=== PATIENT | female | born 2000 | race Caucasian/White ===

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

== ENCOUNTER 2018-06-19 03:06 | Emergency (ER) | payer OTHER ==
[2018-06-19 03:10] VITALS: BP 119/83
--- NOTE | 2018-06-19 03:25 | ED ---
Substance Abuse/Use - HPI Summary HPI Summary: This patient is a 17 year old female brought in by ambulance to [facility] with a chief complaint of alcohol intoxication. Patient states she drank alcohol and went home to her dorm after the republican. Patients roommates found her asleep and called EMS, thinking that she was unconscious. Patient is alert and oriented x3 and does not seem intoxicated. Patient can walk with a steady gait. - History Of Current Complaint Chief Complaint: EDSubstanceAbuse Stated Complaint: "2209" PER POLICE Time Seen by Provider: 06/19/18 03:14 Hx Obtained From: Patient Ingestion History: Type/Name Of Drug Overdose Characteristics: Oral Severity Currently: None Aggravating Factor(s): Nothing Alleviating Factor(s): Nothing Associated Signs And Symptoms: Negative - AMS - Allergies/Home Medications Allergies/Adverse Reactions: Allergies Allergy/AdvReac Type Severity Reaction Status Date / Time No Known Allergies Allergy Verified 11/03/17 21:56 PMH/Surg Hx/FS Hx/Imm Hx Previously Healthy: Yes Endocrine/Hematology History: Denies: Hx Diabetes Cardiovascular History: Denies: Hx Hypertension EENT History: Denies: Hx Deafness - Surgical History Surgery Procedure, Year, and Place: None Infectious Disease History: No Infectious Disease History: Denies: Traveled Outside the [place] in Last 30 Days - Family History Known Family History: Negative: Blood Disorder - Social History Occupation: Student Lives: Dormitory/Roommates Alcohol Use: Weekly Hx Substance Use: No Substance Use Type: Reports: None Hx Tobacco Use: No Smoking Status (MU): Never Smoked Tobacco Review of Systems Negative: Fever Neurological: Other - normal gait Negative: Depressed All Other Systems Reviewed And Are Negative: Yes Physical Exam - Summary Physical Exam Summary: Appearance: Well-appearing, Well-nourished, lying in bed comfortably Skin: Warm, dry, no obvious rash Eyes: sclera anicteric, no conjunctival pallor ENT: mucous membranes moist, pharynx appears normal Neck: Supple, nontender Respiratory: Clear to auscultation, no signs of respiratory distress Cardiovascular: Normal S1, S2. No murmurs. Normal distal pulses in tibial and radial bilaterally. Abdomen: Soft, nontender, normal active bowel sounds present Musculoskeletal: Normal, Strength/ROM Intact Neurological: A&Ox3, awake and alert, mentation is normal, speech is fluent and appropriate. Gait is perfect. Psychiatric: affect is normal, does not appear anxious or depressed Triage Information Reviewed: Yes Vital Signs On Initial Exam: Initial Vitals Temp Pulse Resp BP Pulse Ox 98.7 F 92 16 119/83 100 06/19/18 03:08 06/19/18 03:08 06/19/18 03:08 06/19/18 03:08 06/19/18 03:08 Vital Signs Reviewed: Yes Diagnostics - Vital Signs Vital Signs Temp Pulse Resp BP Pulse Ox 06/19/18 03:08 98.7 F 92 16 119/83 100 - Laboratory Lab Statement: Any lab studies that have been ordered have been reviewed, and results considered in the medical decision making process. Course/Dx - Course Course Of Treatment: This patient is a 17 year old female brought in by ambulance to [facility] with a chief complaint of alcohol intoxication. Patient states she drank alcohol and went home to her dorm after the republican. Patients roommates found her asleep and called EMS, thinking that she was unconscious. Patient is alert and oriented x3 and does not seem intoxicated. Patient can walk with a steady gait. Patient will be discharged with a dx of alcohol intoxication. The patient is agreeable with this plan. - Diagnoses Provider Diagnoses: Alcohol intoxication Discharge - Sign-Out/Discharge Documenting (check all that apply): Patient Departure Patient Received Moderate/Deep Sedation with Procedure: No - Discharge Plan Condition: Good Disposition: HOME Patient Education Materials: Alcohol Intoxication (ED) [facility]errals: [facility] [Z.BUSINESS, APPLICATION, OTHER] - If Needed - Billing Disposition and Condition Condition: GOOD Disposition: Home - Attestation Statements Document Initiated by Afua: Yes Documenting Scribe: Jet Rust Provider For Whom Afua is Documenting (Include Credential): Edd Bowens MD Scribe Attestation: Jet Burgos scribed for Edd Bowens MD on 06/19/18 at 0629. Scribe Documentation Reviewed: Yes Provider Attestation: The documentation as recorded by the Jet cheek accurately reflects the service I personally performed and the decisions made by me, Edd Bowens MD Status of Scribe Document: Viewed
== END 2018-06-19 03:35 | disposition home or self-care (01) ==
LOC: ED 03:06
DX: F10.129 Alcohol abuse with intoxication, unspecified (principal)
CPT/HCPCS: 99282

== ENCOUNTER 2019-03-30 22:07 | Emergency (ER) | payer BC, OTHER ==
[2019-03-30] MEDS ORDERED: Ibuprofen TAB* 600 MG PO ONE (23:05)
--- NOTE | 2019-03-30 23:05 | ED ---
Lower Extremity - HPI Summary HPI Summary: Patient complains of left ankle pain and swelling status post fall from skateboarding today. Denies any other pain, injury or symptoms. - History of Current Complaint Chief Complaint: EDExtremityLower Stated Complaint: ANKLE PAIN PER PT Time Seen by Provider: 03/30/19 22:53 Hx Obtained From: Patient Mechanism Of Injury: Fall From A Standing Position Onset of Pain: Immediate Onset/Duration: Hours Severity Initially: Moderate Severity Currently: Mild Pain Intensity: 0 Pain Scale Used: 0-10 Numeric Timing: Constant Location: Is Discrete @ Character Of Pain: Aching Associated Signs And Symptoms: Positive: Swelling Aggravating Factor(s): Standing, Ambulation Alleviating Factor(s): Rest Able to Bear Weight: No - Allergies/Home Medications Allergies/Adverse Reactions: Allergies Allergy/AdvReac Type Severity Reaction Status Date / Time No Known Allergies Allergy Verified 03/30/19 23:33 Home Medications: Home Medications NK [No Home Medications Reported] 03/30/19 [History Confirmed 03/30/19] PMH/Surg Hx/FS Hx/Imm Hx Endocrine/Hematology History: Denies: Hx Diabetes Cardiovascular History: Denies: Hx Hypertension History: Denies: Hx Dialysis Sensory History: Denies: Hx Deafness Opthamlomology History: Denies: Hx Cataracts EENT History: Denies: Hx Deafness Neurological History: Denies: Hx Dementia - Surgical History Surgery Procedure, Year, and Place: None Infectious Disease History: No Infectious Disease History: Denies: Traveled Outside the [place] in Last 30 Days - Family History Known Family History: Positive: Non-Contributory Negative: Blood Disorder - Social History Alcohol Use: Weekly Hx Substance Use: No Substance Use Type: Reports: None Hx Tobacco Use: No Smoking Status (MU): Never Smoked Tobacco Review of Systems Constitutional: Negative Eyes: Negative ENT: Negative Cardiovascular: Negative Respiratory: Negative Gastrointestinal: Negative Genitourinary: Negative Musculoskeletal: Other Skin: Negative Neurological/Mental Status: Negative Psychological: Normal All Other Systems Reviewed And Are Negative: Yes Physical Exam - Summary Physical Exam Summary: Significant swelling to the lateral malleolus of left ankle. No pain with palpation of foot, calf, knee. PMS intact distally. Triage Information Reviewed: Yes Vital Signs On Initial Exam: Initial Vitals Temp Pulse Resp BP Pulse Ox 98.5 F 94 18 123/65 99 03/30/19 22:09 03/30/19 22:09 03/30/19 22:09 03/30/19 22:09 03/30/19 22:09 Vital Signs Reviewed: Yes Appearance: Positive: Well-Appearing Skin: Positive: Warm Head/Face: Positive: Normal Head/Face Inspection Eyes: Positive: Normal Neck: Positive: Supple Respiratory/Lung Sounds: Positive: Clear to Auscultation Cardiovascular: Positive: Normal Abdomen Description: Positive: Nontender Musculoskeletal: Positive: Normal Neurological: Positive: Normal Psychiatric: Positive: Normal AVPU Assessment: Alert - [place] Coma Scale Best Eye Response: 4 - Spontaneous Best Motor Response: 6 - Obeys Commands Best Verbal Response: 5 - Oriented Coma Scale Total: 15 Procedures - Sedation Patient Received Moderate/Deep Sedation with Procedure: No Diagnostics - Vital Signs Vital Signs Temp Pulse Resp BP Pulse Ox 03/30/19 22:09 98.5 F 94 18 123/65 99 - Laboratory Lab Statement: Any lab studies that have been ordered have been reviewed, and results considered in the medical decision making process. Lower Extremity Course/Dx - Course Course Of Treatment: Patient complains of left ankle pain and swelling status post fall from skateboarding today. Denies any other pain, injury or symptoms. Vital signs within normal limits. X-ray left ankle negative. Ankle splint applied by nurse. Crutches. - Diagnoses Provider Diagnoses: Left ankle sprain Discharge ED - Sign-Out/Discharge Documenting (check all that apply): Patient Departure - Discharge Plan Condition: Stable Disposition: HOME Patient Education Materials: Ankle Sprain (ED), Ankle Stirrup Splint (ED) Referrals: No Primary Care Phys,[facility] [Primary Care Provider] - Morales Aguilar MD [Medical Doctor] - Additional Instructions: Ice 15 minutes at a time. Alternate ibuprofen 600 mg with Tylenol 650 mg every 3 hours for pain and inflammation. Weightbearing as tolerated. If symptoms persist more than 1 week follow-up with orthopedics Dr. Aguilar for further evaluation. - Billing Disposition and Condition Condition: STABLE Disposition: Home
[2019-03-30 23:24] VITALS: BP 104/62
== END 2019-03-30 23:22 | disposition home or self-care (01) ==
LOC: ED 22:07
DX: S93.402A Sprain of unspecified ligament of left ankle, initial encounter (principal); R60.9 Edema, unspecified; V00.131A Fall from skateboard, initial encounter; Y92.9 Unspecified place or not applicable
CPT/HCPCS: 99282